=== PATIENT | female | born 2000 ===

== ENCOUNTER 2022-05-10 16:17 | Emergency (ER) | payer SELFPAY ==
[~2022-05-10] VITALS: Ht 165.1 cm; Wt 89.0 kg
[2022-05-10 16:32] LABS: HEMOGLOBIN 10.6 g/dL (12.0-16.0); MEAN CORPUSCULAR HGB CONC 33.1 G/dL (31.0-37.0); MEAN CORPUSCULAR VOLUME 84 fL (80-100)
[2022-05-10 16:35] VITALS: BP 131/85
[2022-05-10 16:36] LABS: BASOPHILS % (AUTO) 0.4 % (0.0-2.0); EOSINOPHILS % (AUTO) 1.8 % (1.0-6.0); HEMATOCRIT 32.1 % (36-46); LYMPHOCYTES # (AUTO) 2.7 K/uL (1.0-4.8); MONOCYTES # (AUTO) 0.5 K/uL (0.1-1.0); NEUTROPHILS # (AUTO) 4.8 K/uL (1.8-7.7); NEUTROPHILS % (AUTO) 58.8 % (40.0-70.0); RED CELL DISTRIBUTION WIDTH 14.1 % (11.5-14.5)
[2022-05-10 16:41] LABS: ANION GAP 10 mmol/L (8-16); CALCIUM, TOTAL 9.6 mg/dL (8.8-10.5); CARBON DIOXIDE 21 mmol/L (22-29); CHLORIDE 104 mmol/L (98-107); CREATININE 0.58 mg/dL (0.60-1.30); GLUCOSE,RANDOM 79 mg/dL (70-110); POTASSIUM 4.1 mmol/L (3.5-5.1); SODIUM SERUM 135 mmol/L (136-145); UREA NITROGEN, BLOOD 8 mg/dL (7-18)
[2022-05-10 16:42] LABS: GLOMERULAR FILTR. RATE CALC > 60 mL/min (>60)
[2022-05-10 16:48] LABS: ALANINE AMINOTRANSFERASE 10 U/L (12-78); ALBUMIN 2.8 g/dL (3.4-5.0); ALKALINE PHOSPHATASE 204 U/L (46-116); ASPARTATE AMINOTRANSFERASE 13 U/L (15-37); BILIRUBIN,TOTAL 0.2 mg/dL (0.1-1.0); TOTAL PROTEIN, SERUM 6.8 g/dL (6.4-8.2)
[2022-05-10 16:50] LABS: PLATELET COUNT (AUTO) 135 K/uL (150-450); PLATELET MORPHOLOGY COMMENT GIANT PLTS PRESENT
== END 2022-05-10 16:45 | disposition short-term general hospital (02) ==
LOC: EMS 16:17
DX: O47.1 False labor at or after 37 completed weeks of gestation (principal); Z3A.40 40 weeks gestation of pregnancy
CPT/HCPCS: 76805; 80053; 85025; 99285